=== PATIENT | female | born 1955 | race Caucasian/White ===

== ENCOUNTER 2017-03-18 13:36 | Emergency (ER) | payer OTHER ==
[~2017-03-18] VITALS: Ht 175.3 cm; Wt 59.0 kg
[2017-03-18 13:43] VITALS: BP 123/80
== END 2017-03-18 15:38 | disposition left against medical advice (07) ==
LOC: ER 13:36
DX: F41.9 Anxiety disorder, unspecified (principal); Z53.21 Procedure and treatment not carried out due to patient leaving prior to being seen by health care provider